=== PATIENT | male | born 1980 | race Caucasian/White ===

== ENCOUNTER 2018-06-15 10:02 | Emergency (ER) | payer BC ==
[2018-06-15] MEDS ORDERED: KETOROLAC TROMETHAMINE 30 MG/ML SOL IM ONE (10:34)
[2018-06-15 10:55] VITALS: BP 143/94; PULSE 80; RESP 16; TEMP 98.4; O2SAT 98
[2018-06-15] MEDS ORDERED: KETOROLAC TROMETHAMINE 30 MG/ML SOL ONE (11:03)
== END 2018-06-15 11:40 | disposition home or self-care (01) ==
LOC: ED 10:02
DX: M25.511 Pain in right shoulder (principal); X58.XXXA Exposure to other specified factors, initial encounter
CPT/HCPCS: 71101; 96372; 99282; 99283; J1885